=== PATIENT | male | born 1975 | race African-American/Black ===

== ENCOUNTER 2019-10-14 17:20 | Emergency (ER) | payer OTHER ==
[2019-10-14 17:29] VITALS: BMI 46.2
--- NOTE | 2019-10-14 17:46 | PDOC ---
History of Present Illness - General Chief Complaint: Pain Stated Complaint: ABD PAIN Time Seen by Provider: 10/14/19 17:37 History Source: Patient, Family Exam Limitations: No Limitations - History of Present Illness Initial Comments: 10/14/19 17:46 Source: Patient, , Discharge documentation PCP: Cheng, establishing care Wednesday) Aug 19, 2019 onward - admissions at [facility], then [place] Admitted to 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 One episode of vomiting today, NBNB. Diarrhea 3-4 times daily, watery / brown. Patient has been sticking with his fluid restriction despite this and reports his LE edema has decreased dramatically with continued diuretics. Reports no foul smell to the stool. Recent course of ABX and hospitalizations as above. Patient also endorses epigastric burning that begins after taking his medications every morning. Generally resolves after peptobismol, and resolved with Tums this morning. He believes it is a medication side effect. Denies any chest pain at the current time, no associated pains, diaphoresis, N/V with the pain occurrence. Denies any fevers / chills, SOB, dysuria, bloody or dark BMs. Past History - Travel Traveled outside of the country in the last 30 days: No Close contact w/someone who was outside of country & ill: No - Past Medical History Allergies/Adverse Reactions: Allergies Allergy/AdvReac Type Severity Reaction Status Date / Time furosemide [From Lasix] AdvReac Severe Verified 10/14/19 17:26 Home Medications: Ambulatory Orders Acetaminophen 650 mg PO Q6H PRN 10/14/19 Aspirin 81 mg PO DAILY 10/14/19 Ferrous Sulfate 325 mg PO DAILY 10/14/19 Furosemide 80 mg PO DAILY 10/14/19 Lactobacillus Acidophilus [Bacid -] 1 each PO BID 10/14/19 Lisinopril 2.5 mg PO DAILY 10/14/19 Melatonin 1 mg PO HS PRN 10/14/19 Metoprolol Succinate 25 mg PO DAILY 10/14/19 Oxycodone HCl 5 mg PO Q4H PRN 10/14/19 Spironolactone 25 mg PO DAILY 10/14/19 Warfarin Na [Coumadin] 5 mg PO HS 10/14/19 - Psycho Social/Smoking Cessation Hx Smoking History: Never smoked Hx Alcohol Use: No Drug/Substance Use Hx: No Review of Systems - Review of Systems Able to Perform ROS?: Yes Is the patient limited Yakut proficient: Yes Constitutional: No: Chills, Fever, Weakness, Unexplained wgt Loss HEENTM: No: Recent change in vision, Nose Congestion, Throat Pain Respiratory: No: Cough, Shortness of Breath, Wheezing, Hemoptysis Cardiac (ROS): Yes: See HPI, Edema (baseline, improving). No: Chest Pain, Irregular Heart Rate, Lightheadedness, Palpitations, Syncope, Chest Tightness ABD/GI: Yes: See HPI, Diarrhea (for 9 days, watery / brown), Nausea, Vomiting (1x today, NBNB), Indigestion. No: Constipated : No: Burning, Dysuria, Frequency Musculoskeletal: No: Muscle Pain, Muscle Weakness Integumentary: No: Bruising, Pruritus, Rash Neurological: No: Headache, Numbness, Tingling, Weakness Psychiatric: Yes: Stressors (surgeries). No: Change in Appetite Endocrine: No: Increased Thirst, Increased Urine Hematologic/Lymphatic: Yes: Anemia (iron deficiency). No: Blood Clots, Easy Bleeding All Other Systems: Reviewed and Negative *Physical Exam - Vital Signs Last Vital Signs Temp Pulse Resp BP Pulse Ox 97.6 F 130 H 18 111/79 96 10/14/19 17:26 10/14/19 17:26 10/14/19 17:26 10/14/19 17:26 10/14/19 17:26 - Physical Exam 10/14/19 18:44 Vitals reviewed, AF, Tachycardic to 130s. GEN: Well appearing, appears stated age, NAD, comfortable. AAOx3. HEENT: NCAT, EOMI, PERRL. Sclera anicteric, non-injected. No facial asymmetry. Moist mucous membranes. Normal voice. Trachea midline. CV: RRR, S1/S2, no murmurs / rubs / gallops appreciated. LUNG: CTAB, normal work of breathing. No wheezes, rales, rhonchi. No cough. Speaking full sentences. GI: Soft, NTND, +BS, no guarding, no rebound. No masses. Neg CVAT b/l. EXTREMITIES: 2+ distal pulses. + Bilateral LE edema. No obvious deformities of all extremities. SKIN: Warm, dry, no rashes appreciated, non-jaundiced. PSYCH: Normal mood and affect. Cooperative and appropriate. NEURO: CN grossly intact. Moving all extremities well. Normal strength and sensation grossly. 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 History notable for persistently elevated HR (130s) corroborated by documentation, recent hospitalizations, multiple medications additions and changes, antibiotic course. Exam notable for HR (baseline), non-tender abdomen, b/l LE edema, otherwise unremarkable. DDX Diarrhea: Colitis (C Dif?), Panc reatitis, Diverticulitis, Infectious Gastroenteritis, lactose intolerance, DDX pain: From etiologies above or GERD, r/o ACS. - CBC, CMP, Mg, Phos, Lactate, Lipase, Cardiac Profile, UA - EKG - 500cc IVF to start (tenuous volume status) - Maalox, Pepcid 10/14/19 19:10 - Patient endorsed to Dr. Manrique, overnight resident Discharge - Discharge Information Problems reviewed: Yes Clinical Impression/Diagnosis: Tachycardia Diarrhea Qualifiers: Diarrhea type: unspecified type Qualified Code(s): R19.7 - Diarrhea, unspecified Leukocytosis Qualifiers: Leukocytosis type: basophilia Qualified Code(s): D72.824 - Basophilia Abdominal pain Qualifiers: Abdominal location: epigastric Qualified Code(s): R10.13 - Epigastric pain Condition: Stable Disposition: AGAINST MEDICAL ADVICE - Follow up/Referral Referrals: Rosanna Zamudio DO [Primary Care Provider] - - Patient Discharge Instructions Additional Instructions: You were seen today for abdominal pain with diarrhea and one episode of vomiting. Your heart rate was fast (120s-130s). Your white blood cell count and basophil count were high. These are possible signs of a serious infection. Your INR was very high. You should not take your nightly Coumadin dose tonight. Call your doctors office tomorrow morning to ask how to adjust your dose. Be caseful. Any trauma could cause a life threatening bleed. You asked to leave the hospital against medical advice. We discussed the possib ility of a serious infection or other cause of your abnormal results. This could cause a more serious illness, permanent disability, or even . Please, please follow up with your primary care doctor on Wednesday. All of todays results are attached to this packet. Take it with you to the appointment so your doctor can review them. Go to the nearest emergency department for new or worsening symptoms. Print Language: FRENCH - Post Discharge Activity
[2019-10-14] MEDS ORDERED: MAG HYDROX/AL HYDROX/SIMETH 30 ML UNIT-DOSE CUP PO ONE (18:21)
[2019-10-14] MEDS ORDERED: FAMOTIDINE 20 MG/50 ML IVPB 20 MG/50 ML MG IVPB ONE ×2 (18:21→18:42)
[2019-10-14] MEDS ORDERED: SODIUM CHLORIDE 0.9% 500 ML INFUS.BAG IV ONE ×2 (18:23→18:42)
[2019-10-14] MEDS ORDERED: MAG HYDROX/AL HYDROX/SIMETH 30 ML UNIT-DOSE CUP ONE (18:42)
[2019-10-14 18:46] LABS: BASO % 1.1 % (0-2.0); EOS % 56.7 % (0-4.5); HEMOGLOBIN 13.9 GM/dL (11.7-16.9); MCH 28.2 pg (25.7-33.7); MCHC 32.4 g/dl (32.0-35.9); MEAN CELL VOLUME 86.9 fl (80-96); MEAN PLT VOLUME 6.7 fl (7.5-11.1); MONO % 4.2 % (3.8-10.2); PLATELET COUNT 494 K/MM3 (134-434); RBC 4.94 M/mm3 (4.00-5.60); WHITE BLOOD COUNT 17.3 K/mm3 (4.0-10.0)
[2019-10-14 19:08] LABS: ALBUMIN 2.9 g/dl (3.4-5.0); ALK PHOS 123 U/L (45-117); ANION GAP 9 MMOL/L (8-16); BILIRUBIN,TOTAL 0.5 mg/dL (0.2-1); BLOOD UREA NITROGEN 10.5 mg/dL (7-18); CALCIUM 9.4 mg/dL (8.5-10.1); CHLORIDE 100 mmol/L (98-107); CO2 26 mmol/L (21-32); CREATININE 0.6 mg/dL (0.55-1.3); GLUCOSE,RANDOM 113 mg/dL (74-106); LIPASE 125 U/L (73-393); MAGNESIUM 1.7 mg/dL (1.8-2.4); POTASSIUM 3.8 mmol/L (3.5-5.1); SGOT/AST 29 U/L (15-37); SGPT/ALT 30 U/L (13-61); SODIUM 136 mmol/L (136-145); TOT PROT 6.9 g/dl (6.4-8.2)
--- NOTE | 2019-10-14 19:18 | PDOC ---
*Physical Exam - Vital Signs Last Vital Signs Temp Pulse Resp BP Pulse Ox 97.6 F 134 H 18 109/82 100 10/14/19 17:26 10/14/19 18:30 10/14/19 18:30 10/14/19 18:30 10/14/19 18:30 ED Treatment Course - LABORATORY CBC & Chemistry Diagram: 10/14/19 18:20 10/14/19 18:20 - ADDITIONAL ORDERS Additional order review: Laboratory Results 10/14/19 18:20 Sodium 136 Potassium 3.8 Chloride 100 Carbon Dioxide 26 Anion Gap 9 BUN 10.5 Creatinine 0.6 Est GFR (CKD-EPI)AfAm 140.73 Est GFR (CKD-EPI)NonAf 121.43 Random Glucose 113 H Calcium 9.4 Phosphorus 4.0 Magnesium 1.7 L Total Bilirubin 0.5 AST 29 ALT 30 Alkaline Phosphatase 123 H Creatine Kinase 23 L Troponin I < 0.02 Total Protein 6.9 Albumin 2.9 L Lipase 125 10/14/19 18:20 RBC 4.94 MCV 86.9 MCHC 32.4 RDW 18.0 H MPV 6.7 L Neutrophils % 29.0 L Lymphocytes % 9.0 Monocytes % 4.2 Eosinophils % 56.7 H* Basophils % 1.1 - Medications Given in the ED: ED Medications Discontinued Medications Generic Name Dose Route Start Last Admin Trade Name Shaneq PRN Reason Stop Dose Admin Al Hydroxide/Mg Hydroxide 30 ml 10/14/19 18:21 10/14/19 18:48 Mylanta Oral Suspension - PO 10/14/19 18:22 30 ml ONCE ONE Administration Famotidine/Sodium Chloride 20 mg in 50 mls @ 100 mls/hr 10/14/19 18:21 10/14/19 18:48 Pepcid 20 Mg Premixed Ivpb - IVPB 10/14/19 18:50 100 mls/hr ONCE ONE Administration Sodium Chloride 1,000 ml 10/14/19 18:23 10/14/19 18:49 Normal Saline - IV 10/14/19 18:24 Not Given ONCE ONE Sodium Chloride 500 ml 10/14/19 18:42 10/14/19 18:48 Normal Saline - IV 10/14/19 18:43 500 ml ONCE ONE Administration Medical Decision Making - Medical Decision Making Received sign out from resident Dr. Vasquez. In short, pt is a 44 y/o male presenting with abdominal pain and one week of persistent diarrhea in setting of recent cardiac surgery. Will f/u pending lab values. Dispo pending. Spent >25 minutes discussing the abnormal lab values and tachycardia with the pt, the pts , and the pts mother (who identified herself as a registered nurse). Expressed concern for an infection or more serious illness, especially in the context of the recent cardiac surgeries. Also discussed supratherapeutic INR value, and possibility of life threatening hemorrhage. All three people appeared alert and oriented with intact insight. The pt stated he understood the possibility of a serious condition, but that he had been in the hospital for so long, and that he wanted to go home. Further stated he would follow up with his primary care doctor on Wednesday Morning. Told the pt to hold his evening Warfarin dose, and to call his doctors office in the morning to determine the revised dose. Returned again to the bedside to again review the abnormal values and concerns. MEÑO Alicia was present for this conversation. The pt and his family members again stated they understood the risks and that the pt was leaving against medical advice. Also stated they had no further questions. Provided copy of todays results. Discharge - Discharge Information Problems reviewed: Yes Clinical Impression/Diagnosis: Tachycardia Diarrhea Qualifiers: Diarrhea type: unspecified type Qualified Code(s): R19.7 - Diarrhea, unspecified Leukocytosis Qualifiers: Leukocytosis type: basophilia Qualified Code(s): D72.824 - Basophilia Abdominal pain Qualifiers: Abdominal location: epigastric Qualified Code(s): R10.13 - Epigastric pain Condition: Stable Disposition: AGAINST MEDICAL ADVICE - Admission No - Follow up/Referral Referrals: Rosanna Zamudio DO [Primary Care Provider] - - Patient Discharge Instructions Additional Instructions: You were seen today for abdominal pain with diarrhea and one episode of vomiting. Your heart rate was fast (120s-130s). Your white blood cell count and basophil count were high. These are possible signs of a serious infection. Your INR was very high. You should not take your nightly Coumadin dose tonight. Call your doctors office tomorrow morning to ask how to adjust your dose. Be caseful. Any trauma could cause a life threatening bleed. You asked to leave the hospital against medical advice. We discussed the possibility of a serious infection or other cause of your abnormal results. This could cause a more serious illness, permanent disability, or even . Please, please follow up with your primary care doctor on Wednesday. All of todays results are attached to this packet. Take it with you to the appointment so your doctor can review them. Go to the nearest emergency department for new or worsening symptoms. Print Language: CAY[place] ISLANDER - Post Discharge Activity
[2019-10-14 19:24] LABS: PROTHROMBIN TIME (PATIENT) 99.1 SEC (9.7-13.0)
[2019-10-14 19:25] LABS: INR 8.22 (0.83-1.09)
--- NOTE | 2019-10-14 19:39 | PDOC ---
Documentation entered by Jeremiah Johnson SCRIBE, acting as scribe for Isis Schwartz MD. Isis Schwartz MD: This documentation has been prepared by the Milagro berrios Nirvannie, SCRIBE, under my direction and personally reviewed by me in its entirety. I confirm that the documentation accurately reflects all work, treatment, procedures, and medical decision making performed by me. Attending Attestation - Resident Resident Name: Maxwell Vasquez - ED Attending Attestation I have performed the following: I have examined & evaluated the patient, The case was reviewed & discussed with the resident, I agree w/resident's findings & plan, Exceptions are as noted - HPI HPI: 10/14/19 18:56 [id number] with a significant past medical history of DM, squamous cell carcinoma to the right lateral thigh, aortic valve stenosis with vegetation / tumor s/p replacement with open heart surgery on 09/01/2019 (TV and MV replacement at the same time) On Coumadin - negative cultures but empirically treated with unasyn IV then Augmentin 875 bid for 2 weeks on discharge, DVT (on Warfarin), anemia with 9 days of watery brown/nonbloody diarrhea and 7 days of epigastric discomfort described as a burning sensation - which is intermittent, denies exacerbating or alleviating factors. Denies fever, chills, chest pain, SOB, palpitation, dizziness, weakness, bladder and bowel problems, leg swelling, No sick contacts or travel. No new changes in medications. Allergies: Furosemide. Lactose intolerance. Past Medical History: DM, squamous cell carcinoma to the right lateral thigh, aortic valve stenosis with vegetation / tumor s/p replacement with open heart surgery on 09/01/2019 (TV and MV repairs at the same time) - negative cultures but empirically treated with unasyn IV then Augmentin 875 bid for 2 weeks on d ischarge, DVT (on Warfarin), anemia Social history: Lives with family. No tobacco, ETOH or drug use. Surgical history: As per nursing notes. Meds: as documented in EMR PMD: Dr. Hall 10/14/19 20:08 - Physicial Exam PE: 10/14/19 18:08 NAD, well appearing, EOMI, PERRL, MMM, nl conjunctiva, anicteric; neck supple. anteiror sternotomy scar, well healing. mild tender to palp. lungs clear, no murmur, +tachycardic, abdomen soft nontender. Obese. Back nontender. WHITEHEAD x4, no focal neuro deficits. No peripheral edema. normal color for ethnicity, WWP. 10/14/19 19:38 10/14/19 20:09 - Medical Decision Making 10/14/19 19:38 Vital Signs Temp Pulse Resp BP Pulse Ox 97.6 F 134 H 18 109/82 100 10/14/19 17:26 10/14/19 18:30 10/14/19 18:30 10/14/19 18:30 10/14/19 18:30 DDx abdominal pain: Renal colic, biliary colic, metabolic/electrolyte derangements. GERD, PUD, esophageal spasm, pancreatitis, hepatitis, constipation, colitis, gastroenteritis, cholecystitis, UTI, pyelonephritis, ileus, SBO, medication side effect, hernia, appendicitis, diverticulitis, mesenteric ischemia. msk strain, mesenteric adenitis, psoas abscess. c diff colitis. 10/14/19 20:20 Vital signs reviewed, no fever, checked rectally. Tachycardia is noted in the 130s. Normotensive, no respiratory distress. Prior records from [place] were reviewed extensively, patient recently had presumed endocarditis with negative cultures, he had mitral and aortic valve replacement. He was on a course of Unasyn and DC'd on Augmentin which he has yet to complete. Given his recent antibiotic use there is concern for C. difficile colitis given his abdominal discomfort as well as large episodes of diarrhea for over a week., Guaiac is sent, negative for occult blood Laboratory results remarkable for leukocytosis 17 K. Patient is also supratherapeutic on his Coumadin, INR is 8. No reversal at this time as patient is status post aortic and mitral valve replacement so there is a risk for thrombosis. Trop neg, reassuring given IVF GI cocktail. reassess. bedside echo CT chest CT abdomen pelvis to evaluate for intra-abdominal process versus toxic megacolon versus abscess versus acute pathology given his recent procedures and hospitalization 10/14/19 20:25 pt declines imaging, c diff testing, admission. The patient has requested to leave the ED against medical advice. Discussion at the bedside with patient (and family). Pt has capacity to make medical decisions. Discussed indications for treatment and admission, management plan, risks and benefits. I believe this patient is of sound mind and competent to refuse medical care. The patient is responding and asking questions appropriately. The patient is oriented to person, place and time. There is no evidence of psychosis, delusions/hallucinations, suicidal/homicidal ideation, altered mental status or intoxication. The patient demonstrates a normal mental capacity to make decisions regarding their healthcare. The patient is clinically sober and does not appear to be under the influence of any illicit drugs at this time. Patient understands the nature of the condition and treatment plan, advised of the potential risks, in layman terms, of leaving AMA which include, but are not limited to: cardiopulmonary arrest, severe infection, blood stream infection, dehydration, severe bleeding, multiorgan failure including liver, kidney, brain, lung and heart, myocardial infarction, arrhythmia, stroke, head bleed, seizure, carotid stenosis/aneurysm/dissection, respiratory failure, delay in diagnosis and management, loss of current lifestyle, loss of functional status, coma, severe disability and . Alternatives have been offered - the patient remains steadfast in their wish to leave. The patient has been advised that should they change their mind they are welcome to return to this hospital, or any other, at any time - call 911 immediately if severe life threatening symptoms or concerns occur. The patient understands that in no way does an AMA discharge mean that I do not want them to have the best medical care available. To this end, I have provided appropriate prescriptions, referrals, and discharge instructions. Patient will have close followup with primary doctor and/or specialists as provided/discussed for clinical reevaluation. Patient verbalized understanding of information provided, questions answered. The patient did sign AMA paperwork. The above discussion was witnessed by another member of staff, RN and Dr Manrique ------- 10/16/19 20:14 Heart Score/ECG Review #1 ECG reviewed & interpreted by me at: 17:40 General ECG Interpretation: Sinus Rhythm, Normal Intervals Compared to previous ECG there are: Previous ECG unavail 10/14/19 19:39 EKG sinus tachycardia 125 bpm, intermittent PVC no interval abnormalities, narrow QRS, ST and T wave segments and morphology normal. Nonspecific T wave abnormalities
[2019-10-14 20:02] LABS: EPI CELLS 4.5 /HPF (0-5/HPF); HYALINE CASTS 10 /lpf (0-8); URINE APPEARANCE CLOUDY; URINE BILIRUBIN 1+ (NEGATIVE); URINE COLOR DK YELLOW; URINE GLUCOSE (UA) NEGATIVE (NEGATIVE); URINE KETONE TRACE (NEGATIVE); URINE LEUK ESTERASE NEGATIVE (NEGATIVE); URINE NITRITE NEGATIVE (NEGATIVE); URINE PROTEIN 1+ (NEGATIVE); URINE RBC 3 /hpf (0-4); URINE WBC 1 /hpf (0-5)
[2019-10-14 20:07] VITALS: TEMP 99.1
[2019-10-14 20:56] VITALS: BP 112/75; PULSE 128
[2019-10-14 21:15] LABS: URINE CRYSTALS MODERATE /hpf
--- NOTE | 2019-10-16 09:36 | EKG ---
Test Reason : Blood Pressure : / mmHG Vent. Rate : 125 BPM Atrial Rate : 125 BPM P-R Int : 164 ms QRS Dur : 088 ms QT Int : 330 ms P-R-T Axes : -12 -08 056 degrees QTc Int : 476 ms SINUS TACHYCARDIA WITH OCCASIONAL PREMATURE VENTRICULAR COMPLEXES INFERIOR INFARCT , AGE UNDETERMINED ABNORMAL ECG NO PREVIOUS ECGS AVAILABLE Confirmed by Amanda Pappas ([id number]) on 10/16/2019 9:36:22 AM Referred By: Confirmed By:Amanda Pappas
== END 2019-10-14 20:58 | disposition left against medical advice (07) ==
LOC: JER 17:20
PROC: 3E033GC Introduction of Other Therapeutic Substance into Peripheral Vein, Percutaneous Approach (ICD-10-PCS; principal; 2019-10-14)
DX: R00.0 Tachycardia, unspecified (principal); D72.824 Basophilia; R10.13 Epigastric pain; D68.8 Other specified coagulation defects; E73.9 Lactose intolerance, unspecified; D50.9 Iron deficiency anemia, unspecified; E11.9 Type 2 diabetes mellitus without complications; Z85.828 Personal history of other malignant neoplasm of skin; Z95.4 Presence of other heart-valve replacement; Z86.79 Personal history of other diseases of the circulatory system; Z86.718 Personal history of other venous thrombosis and embolism; Z79.01 Long term (current) use of anticoagulants; Z88.8 Allergy status to other drugs, medicaments and biological substances
CPT/HCPCS: 36415; 71045-TC-FY; 80053; 81003; 82272; 82550; 83605; 83690; 83735; 84100; 84484; 85025; 85610; 93005; 93010; 99285-25

== ENCOUNTER 2020-02-10 17:37 | Inpatient (IN) | payer OTHER ==
[2020-02-10] MEDS ORDERED: TRANEXAMIC ACID 1000 MG/10 ML VIAL IVPUSH ONE (17:57)
--- NOTE | 2020-02-10 18:00 | PDOC ---
History of Present Illness - General Chief Complaint: Wound Stated Complaint: ULCER BLEEDING Time Seen by Provider: 02/10/20 17:46 History Source: Patient, Family - History of Present Illness Initial Comments: 02/10/20 18:38 44M w/hx active SCC, afib, CHF, HTN BIBEMS bleed from wound site, wrapped with c ompression dressing en route. He has active SCC with ulcerations along the R upper thigh through to the inner thigh and groin. His reports that during prior bleeds from these ulcerations she has applied direct pressure until the bleeding stopped. Today, he sat down onto the toilet when he scraped the ulceration on the inner thigh and began to bleed. He became lightheaded and had a brief period of LOC before waking up to his normal mental status. He denies any chest pain, sob. He endorses generalized weakness, fatigue. Past History - Medical History Allergies/Adverse Reactions: Allergies Allergy/AdvReac Type Severity Reaction Status Date / Time furosemide [From Lasix] AdvReac Severe Verified 02/10/20 17:56 Home Medications: Ambulatory Orders Acetaminophen 650 mg PO Q6H PRN 10/14/19 Aspirin 81 mg PO DAILY 10/14/19 Ferrous Sulfate 325 mg PO DAILY 10/14/19 Metoprolol Succinate [Toprol XL -] 200 mg PO DAILY #30 tab.sr.24h 10/30/19 Spironolactone 25 mg PO DAILY #30 tablet 10/30/19 Amiodarone HCl 400 mg PO BID 02/10/20 Anemia: Yes Cancer: Yes (Squamous cell right leg) Cardiac Disorders: Yes (Aortic valve stenosis, hypertensive heart dx w/ heart failure) COPD: No DVT: Yes Diabetes: Yes (Type I) HTN: Yes Other medical history: Obesity - Surgical History Cardiac Surgery: Yes - Psycho-Social/Smoking History Smoking History: Never smoked Have you smoked in the past 12 months: No Information on smoking cessation initiated: No - Substance Abuse Hx (Audit-C & DAST Scrn) How often the patient has a drink containing alcohol: Never Score: In Men: 4 or > Positive; In Women: 3 or > Positive: 0 Screen Result (Pos requires Nsg. Audit-10AR): Negative Review of Systems - Review of Systems Able to Perform ROS?: Yes Comments:: 02/11/20 10:37 GENERAL/CONSTITUTIONAL: Weakness. No fever or chills. HEAD, EYES, EARS, NOSE AND THROAT: No change in vision. No ear pain or discharge. No sore throat. CARDIOVASCULAR: No chest pain or shortness of breath RESPIRATORY: No cough, wheezing, or hemoptysis. GASTROINTESTINAL: No nausea, vomiting, diarrhea or constipation. GENITOURINARY: No dysuria, frequency, or change in urination. MUSCULOSKELETAL: RLE pain. No other joint or muscle swelling or pain. No neck or back pain. SKIN: SCC ulcerations. No other rash NEUROLOGIC: No headache, vertigo, loss of consciousness, or change in strength/sensation. ENDOCRINE: No increased thirst. No abnormal weight change HEMATOLOGIC/LYMPHATIC: Prior transfusion dependent anemia, easy bleeding. No history of blood clots. ALLERGIC/IMMUNOLOGIC: No hives or skin allergy. *Physical Exam - Vital Signs Last Vital Signs Temp Pulse Resp BP Pulse Ox 98.9 F 98 H 20 97/70 97 02/10/20 17:53 02/10/20 17:53 02/10/20 17:53 02/10/20 17:53 02/10/20 17:53 - Physical Exam 02/11/20 10:39 GENERAL: Pale. Awake, alert, and fully oriented HEAD: No signs of trauma, normocephalic, atraumatic EYES: PERRLA, EOMI, sclera anicteric, conjunctiva clear ENT: Auricles normal inspection, hearing grossly normal, nares patent, oropharynx clear without exudates. Moist mucosa NECK: Normal ROM, supple, no lymphadenopathy, JVD, or masses LUNGS: No distress, speaks full sentences, clear to auscultation bilaterally HEART: Regular rate and rhythm, normal S1 and S2, no murmurs, rubs or gallops, peripheral pulses normal and equal bilaterally. ABDOMEN: Soft, nontender, normoactive bowel sounds. No guarding, no rebound. No masses EXTREMITIES : RLE: ulcerations noted throughout anterior extremity, distributed medially to R inner thigh. No active bleeding. Otherwise: Normal inspection, Nor mal range of motion, no edema. No clubbing or cyanosis NEUROLOGICAL: Cranial nerves II through XII grossly intact. Normal speech, no focal sensorimotor deficits SKIN: Lesions on RLE as described above. ED Treatment Course - LABORATORY CBC & Chemistry Diagram: 02/11/20 06:02/11/20 06:20 Medical Decision Making - Medical Decision Making 44M w/hx SCC, afib, CHF, HTN p/w acute onset bleeding from SCC lesions after scraping lesion against toiler, approx blood loss 500cc per EMS. Compression dressing applied, no active bleeding at this time. Pallor on exam, brief LOC c oncerning for blood loss anemia vs vasovagal syncope. Plan: Topical TXA dressing of wounds, reapply compression bandages CBC PT/INR, APTT Type and screen Troponin I CMP EKG CXR 2L LR Dispo: Pending H&H --- Hg 7.6 Plan for 2u transfusion PRBCs, admission Consent for transfusion completed and signed. --- Patient endorsing significant pain from wound site. 50mg fentanyl ordered. --- Patient endorsed to inpatient team. Patient admitted. Discharge - Discharge Information Problems reviewed: Yes Clinical Impression/Diagnosis: Squamous cell carcinoma, leg, Blood loss anemia Condition: Guarded - Admission Yes - Follow up/Referral - Patient Discharge Instructions - Post Discharge Activity
[2020-02-10 18:16] LABS: BASO % 0.5 % (0-2.0); EOS % 40.8 % (0-4.5); HEMATOCRIT 24.2 % (35.4-49); HEMOGLOBIN 7.6 GM/dL (11.7-16.9); LYMPH % 5.5 % (8-40); MCH 27.3 pg (25.7-33.7); MCHC 31.3 g/dl (32.0-35.9); MEAN PLT VOLUME 6.7 fl (7.5-11.1); MONO % 5.1 % (3.8-10.2); NEUT % 48.1 % (42.8-82.8); PLATELET COUNT 513 K/MM3 (134-434); RBC 2.79 M/mm3 (4.00-5.60); RDW 15.7 % (11.9-15.9); WHITE BLOOD COUNT 19.2 K/mm3 (4.0-10.0)
[2020-02-10] MEDS ORDERED: TRANEXAMIC ACID 1000 MG/10 ML VIAL ONE (18:17)
[2020-02-10 18:22] LABS: INR 1.21 (0.83-1.09); PROTHROMBIN TIME (PATIENT) 14.3 SEC (9.7-13.0)
--- NOTE | 2020-02-10 18:22 | PDOC ---
Attending Attestation - Resident Resident Name: Lamberto Weathers - ED Attending Attestation I have performed the following: I have examined & evaluated the patient, The case was reviewed & discussed with the resident, I agree w/resident's findings & plan - HPI HPI: 02/10/20 18:20 44YOM with a significant past medical history of DM, squamous cell carcinoma to the right lateral thigh, aortic valve stenosis with vegetation / tumor s/p replacement with open heart surgery on 09/01/2019 (TV and MV replacement at the same time) On Coumadin, DVT (on Warfarin), anemia presenting with right thigh bleeding from SCC ulcerations after getting up from the bathroom toilet a/w syncope after seeing the bleeding. noted to have significant bleeding en route with EMS, compression dressings placed around his thigh. estimated blood loss ~450ml. 02/10/20 18:29 - Physicial Exam PE: 02/10/20 18:20 Agree with the resident's HPI and PE as documented in the electronic medical record. NAD, alert and awake, mentating, EOMI, PERRL, nl conjunctiva, anicteric; neck supple. lungs clear, RRR, abdomen soft nontender. No rebound, no guarding. Back nontender. WHITEHEAD x4, no focal neuro deficits. No peripheral edema. normal color for ethnicity, WWP. speech clear. +right thigh with extensive area of SCC mass related SQ ulcerations with irregular granulated tissue and borders; large medial ulceration with blood clot, no active bleeding. 02/10/20 18:29 02/12/20 08:06 - Critical Care Time Total Critical Care Time: 40 (hemorrhage) Critical Care Statement: The care of this patient involved high complexity decision making to prevent further life threatening deterioration of the patient's condition and/or to evaluate & treat vital organ system(s) failure or risk of failure. - Medical Decision Making 02/10/20 18:21 Vital Signs Temp Pulse Resp BP Pulse Ox 98.9 F 98 H 20 97/70 97 02/10/20 17:53 02/10/20 17:53 02/10/20 17:53 02/10/20 17:53 02/10/20 17:53 Vitals reviewed_ soft BP, could have had a vasovagal episode vs hemorrhage, which is being controlled no fever normal sats, no respiratory distress. Topical txa, to control bleeding Appears to be superficial/venous, not arterial Compression dressings with gauze soaked TXA topically 15-30 minutes, reassess Basic labs and lytes, txs to evaluate for anemia/bleeding complications. acutely anemic and symptomatic, H/H 7.6/24.2 with blood loss will transfuse 2 units prbc volume resuscitate in the meantime with 1L IVF given his soft BP admission warranted, for SCC ulcerative bleeding, acute anemia, syncope, now hemostatic. 02/10/20 18:30 02/10/20 18:30 02/10/20 19:00 Discharge - Discharge Information Problems reviewed: Yes Clinical Impression/Diagnosis: Squamous cell carcinoma, leg, Blood loss anemia Condition: Guarded - Admission Yes - Follow up/Referral - Patient Discharge Instructions - Post Discharge Activity
[2020-02-10 18:25] LABS: ACTIVATED PTT 26.1 SECONDS (25.2-36.5)
[2020-02-10 18:51] LABS: ALBUMIN 1.6 g/dl (3.4-5.0); ALK PHOS 86 U/L (45-117); ANION GAP 8 MMOL/L (8-16); BILIRUBIN,TOTAL 0.2 mg/dL (0.2-1); BLOOD UREA NITROGEN 14.9 mg/dL (7-18); CALCIUM 8.1 mg/dL (8.5-10.1); CHLORIDE 105 mmol/L (98-107); CO2 25 mmol/L (21-32); CREATININE 1.1 mg/dL (0.55-1.3); GLUCOSE,RANDOM 179 mg/dL (74-106); SGOT/AST 15 U/L (15-37); SGPT/ALT 14 U/L (13-61); SODIUM 139 mmol/L (136-145); TOT PROT 5.5 g/dl (6.4-8.2)
[2020-02-10] MEDS ORDERED: LACTATED RINGERS SOLUTION 1000 ML INFUS.BAG IV ONE (19:03)
--- NOTE | 2020-02-10 19:25 | PN ---
Teaching Attending Note Name of Resident: Don Rey ATTENDING PHYSICIAN STATEMENT I saw and evaluated the patient. I reviewed the resident's note and discussed the case with the resident. I agree with the resident's findings and plan as documented. SUBJECTIVE: Patient is a 44 year old man with a PMH of Diet-controlled DM, HFrEF (LVEF 40% - ECHO 10/24/2019), Squamous cell carcinoma of right lateral thigh, Aortic valve stenosis, Valvular replacement with open heart surgery on 09/01/2019 (TV and MV replacement at the same time - ?bovine), Aflutter, DVT (stopped coumadin 1 month ago), HTN and Anemia presenting with right thigh bleeding from SCC ulcerations after accidentally scrapping the thigh ulcerations on the toilet seat. Reports a bout of syncope upon seeing the bleeding. EMS noted significant bleeding en route with estimated loss of about 450 ml. EMS applied compression dressings placed around his thigh. Reports generalized weakness and fatigue. Patient denies chest pain, SOB, fever, chills, nausea, vomiting, abdominal pain, dysuria or diarrhea. Denies alcohol, tobacco or illicit drug use. No sick contacts or recent travels. Family history is unremarkable. OBJECTIVE: Alert Vital Signs Period Temp Pulse Resp BP Sys/Carrion Pulse Ox Last 24 Hr 98.9 F 98 20 97/70 97 HEENT: No Jaundice, eye redness or discharge, PERRLA, EOMI. Normocephalic, atraumatic. External ears are normal and hearing is grossly intact. No nasal discharge. Neck: Supple, nontender. No palpable adenopathy or thyromegaly. No JVD Chest: Good effort. Clear to auscultation and percussion. Heart: Regular. 2/6 GIDEON. No S3 or rub. Abdomen: Not distended, soft, nontender and no HSM. No rebound or guarding. Normal bowel sounds. Ext: Peripheral pulses intact. No leg edema. Ulceration in right groin and back of right thigh with active bleeding. RLE bigger than LLE. Skin: Warm and dry. No petechiae, rash or ecchymosis. Neuro: Alert. Oriented x3. CN 2-12 grossly intact. Sensation grossly intact in all four extremities and DTR are symmetric. Psych: Appropriate mood and affect. Good insight. Home Medications Medication Instructions Recorded Acetaminophen 650 mg PO Q6H PRN 10/14/19 Aspirin 81 mg PO DAILY 10/14/19 Ferrous Sulfate 325 mg PO DAILY 10/14/19 Metoprolol Succinate [Toprol XL -] 200 mg PO DAILY #30 tab.sr.24h 10/30/19 Spironolactone 25 mg PO DAILY #30 tablet 10/30/19 Amiodarone HCl 400 mg PO BID 02/10/20 Abnormal Lab Results 02/10/20 02/10/20 02/10/20 18:00 18:00 18:00 WBC 19.2 H RBC 2.79 L Hgb 7.6 L Hct 24.2 L D MCHC 31.3 L Plt Count 513 H D MPV 6.7 L Absolute Neuts (auto) 9.2 H Lymphocytes % 5.5 L D Eosinophils % 40.8 H* PT with INR 14.30 H INR 1.21 H Random Glucose 179 H Calcium 8.1 L Total Protein 5.5 L Albumin 1.6 L Crossmatch 02/10/20 18:00 WBC RBC Hgb Hct MCHC Plt Count MPV Absolute Neuts (auto) Lymphocytes % Eosinophils % PT with INR INR Random Glucose Calcium Total Protein Albumin Crossmatch See Detail Current Medications Generic Name Dose Route Start Last Admin Trade Name Freq PRN Reason Stop Dose Admin Tramadol HCl 50 mg 02/10/20 21:24 Ultram - PO Q8H PRN PAIN LEVEL 7 - 10 ASSESSMENT AND PLAN: 1. Squamous cell carcinoma of right thigh/Blood loss anemia - Being transfused PRBC and compression stockings applied. Got a dose of IV Tranexamic acid in the ER. Will encourage leg elevation when supine. Consult Oncology. Leukocytosis is unexplained - will do sepsis workup to rule out infection and repeat CBC stat. 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 Would benefit from IV iron therapy before discharge. Viral testing for COVID-19 ordered and patient placed on airborne, droplet and contact isolation. EKG shows NSR at 90/minute and QTc 479 with T wave inversion in V1-V3 and no significant ST wave changes - no significant change compared to his prior EKG. Initial troponin is negative. Will admit to telemetry and monitor HCT q 6 hours. Avoid drugs that may prolong QTc. Will continue comprehensive care for all of patients comorbid conditions. 2. Hypoalbuminemia - Possibly due to combined effects of malnutrition and inflammation associated with comorbid conditions. Will ensure adequate dietary protein intake and also consult arboriculturist. Urinalysis pending. 3. Diet-controlled DM For now, we will implement sliding scale insulin regimen. Provide comprehensive diabetes care with patient teaching and counseling about the importance of adherence to prescribed diabetes regimen, euglycemia, eye care and foot care. 4. Morbid obesity Counseled on the risks associated with obesity. Will provide patient all the necessary assistance, counseling and positive reinforcement to f acilitate weight loss. Consult arboriculturist. 5. Hypertension Will restart suitable outpatient antihypertensive drugs when clinically appropriate. Subsequently, will revise regimen to ensure round-the- clock excellent BP control. Patient counseled on the injurious effects of uncontrolled hypertension. Nonpharmacologic measures to control hypertension like weight loss, salt restriction and exercise stressed. Importance of adherence to treatment regimen and attainment of normotension emphasized. 6. DVT prophylaxis - Early ambulation; will avoid heparin until bleeding stops. 7. Advance directives - Full code
--- NOTE | 2020-02-10 21:41 | HP ---
CHIEF COMPLAINT: Syncope PCP: Dr. Phillips HISTORY OF PRESENT ILLNESS: Mr. Bae is a 44M with a PMHx of SCC of the right upper thigh with an active wound, aortic valve stenosis s/p povine valve replacement of both MV and TV on 09/01/19. Patient was advised by the sugar controller to stop coumadin for the valve replacement last month. DVT, and anemia. The patient is BIBEMS and reported having woken up from a nap and his leg feeling extremely swollen as if about to pop. The patient walked to the restroom to use the toilet and once seated the SCC ulcer had ruptured and active bleeding of about 450cc had ensued. The patient had been witnessed by the to be diaphoretic and pale. The patients assisted in compressions and preventing the patient from striking his head as he lost muscle tone. The patient's reported the episode to have lasted 1 min. The patient endorses diaphoresis. The patient denies chest pain, shoulder pain, numbness or tingling in the arms or hands. The patient also denies shortness of breath or dyspnea. ER course was notable for: (1) hypotension (2) (3) Recent Travel: PAST MEDICAL HISTORY: PAST SURGICAL HISTORY: Social History: Smoking: Alcohol: Drugs: Allergies furosemide [From Lasix] Adverse Reaction (Severe, Verified 02/10/20 17:56) watch BP? HOME MEDICATIONS: Home Medications Medication Instructions Recorded Acetaminophen 650 mg PO Q6H PRN 10/14/19 Aspirin 81 mg PO DAILY 10/14/19 Ferrous Sulfate 325 mg PO DAILY 10/14/19 Metoprolol Succinate [Toprol XL -] 200 mg PO DAILY #30 tab.sr.24h 10/30/19 Spironolactone 25 mg PO DAILY #30 tablet 10/30/19 Amiodarone HCl 400 mg PO BID 02/10/20 REVIEW OF SYSTEMS CONSTITUTIONAL: Absent: fever, chills, diaphoresis, generalized weakness, malaise, loss of appetite, weight change HEENT: Absent: rhinorrhea, nasal congestion, throat pain, throat swelling, difficulty swallowing, mouth swelling, ear pain, eye pain, visual changes CARDIOVASCULAR: Absent: chest pain, syncope, palpitations, irregular heart rate, lightheadedness, peripheral edema RESPIRATORY: Absent: cough, shortness of breath, dyspnea with exertion, orthopnea, wheezing, stridor, hemoptysis GASTROINTESTINAL: Absent: abdominal pain, abdominal distension, nausea, vomiting, diarrhea, constipation, melena, hematochezia GENITOURINARY: Absent: dysuria, frequency, urgency, hesitancy, hematuria, flank pain, genital pain MUSCULOSKELETAL: Absent: myalgia, arthralgia, joint swelling, back pain, neck pain SKIN: Absent: rash, itching, pallor HEMATOLOGIC/IMMUNOLOGIC: Absent: easy bleeding, easy bruising, lymphadenopathy, frequent infections ENDOCRINE: Absent: unexplained weight gain, unexplained weight loss, heat intolerance, cold intolerance NEUROLOGIC: Absent: headache, focal weakness or paresthesias, dizziness, unsteady gait, seizure, mental status changes, bladder or bowel incontinence PSYCHIATRIC: Absent: anxiety, depression, suicidal or homicidal ideation, hallucinations. PHYSICAL EXAMINATION Vital Signs - 24 hr 02/10/20 02/10/20 17:53 20:00 Temperature 98.9 F 98.3 F Pulse Rate 98 H Pulse Rate [ 87 Left Radial] Respiratory 20 22 H Rate Blood Pressure 97/70 Blood Pressure 110/65 [Right Arm] O2 Sat by Pulse 97 97 Oximetry (%) GENERAL: Awake, alert, and fully oriented, in no acute distress. HEAD: Normal with no signs of trauma. EYES: Pupils equal, round and reactive to light, extraocular movements intact, sclera anicteric, conjunctiva clear. No lid lag. EARS, NOSE, THROAT: Ears normal, nares patent, oropharynx clear without exudates. Moist mucous membranes. NECK: Normal range of motion, supple without lymphadenopathy, JVD, or masses. LUNGS: Breath sounds equal, clear to auscultation bilaterally. No wheezes, and no crackles. No accessory muscle use. HEART: Regular rate and rhythm, normal S1 and S2 without murmur, rub or gallop. ABDOMEN: Soft, nontender, not distended, normoactive bowel sounds, no guarding, no rebound, no masses. No hepatomegaly or splenomegaly. MUSCULOSKELETAL: Normal range of motion at all joints. No bony deformities or tenderness. No CVA tenderness. UPPER EXTREMITIES: 2+ pulses, warm, well-perfused. No cyanosis. No clubbing. No peripheral edema. LOWER EXTREMITIES: 2+ pulses, warm, well-perfused. No calf tenderness. No peripheral edema. NEUROLOGICAL: Cranial nerves II-XII intact. Normal speech. Normal gait. PSYCHIATRIC: Cooperative. Good eye contact. Appropriate mood and affect. SKIN: Warm, dry, normal turgor, no rashes or lesions noted, normal capillary refill. Laboratory Results - last 24 hr 02/10/20 02/10/20 02/10/20 18:00 18:00 18:00 WBC 19.2 H RBC 2.79 L Hgb 7.6 L Hct 24.2 L D MCV 87.0 MCH 27.3 MCHC 31.3 L RDW 15.7 D Plt Count 513 H D MPV 6.7 L Absolute Neuts (auto) 9.2 H Neutrophils % 48.1 Neutrophils % (Manual) 49.0 D Band Neutrophils % 0.0 Lymphocytes % 5.5 L D Lymphocytes % (Manual) 11.8 D Monocytes % 5.1 Monocytes % (Manual) 5 Eosinophils % 40.8 H* Eosinophils % (Manual) 33.3 H Basophils % 0.5 Basophils % (Manual) 1.0 D Myelocytes % (Man) 0 Promyelocytes % (Man) 0 Blast Cells % (Manual) 0 Nucleated RBC % 0 Metamyelocytes 0 PT with INR 14.30 H INR 1.21 H PTT (Actin FS) 26.1 Sodium 139 Potassium 4.0 Chloride 105 Carbon Dioxide 25 Anion Gap 8 BUN 14.9 Creatinine 1.1 Est GFR (CKD-EPI)AfAm 93.47 Est GFR (CKD-EPI)NonAf 80.64 Random Glucose 179 H Calcium 8.1 L Total Bilirubin 0.2 AST 15 ALT 14 Alkaline Phosphatase 86 Troponin I < 0.02 Total Protein 5.5 L Albumin 1.6 L Blood Type Antibody Screen Crossmatch 02/10/20 02/10/20 18:00 20:20 WBC RBC Hgb Hct MCV MCH MCHC RDW Plt Count MPV Absolute Neuts (auto) Neutrophils % Neutrophils % (Manual) Band Neutrophils % Lymphocytes % Lymphocytes % (Manual) Monocytes % Monocytes % (Manual) Eosinophils % Eosinophils % (Manual) Basophils % Basophils % (Manual) Myelocytes % (Man) Promyelocytes % (Man) Blast Cells % (Manual) Nucleated RBC % Metamyelocytes PT with INR INR PTT (Actin FS) Sodium Potassium Chloride Carbon Dioxide Anion Gap BUN Creatinine Est GFR (CKD-EPI)AfAm Est GFR (CKD-EPI)NonAf Random Glucose Calcium Total Bilirubin AST ALT Alkaline Phosphatase Troponin I Total Protein Albumin Blood Type B NEGATIVE B NEGATIVE Antibody Screen Negative Negative Crossmatch See Detail ASSESSMENT/PLAN: 44 year old male with PMH of Obesity, DM 2, HFrEF (LVEF 40% - ECHO 10/24/2019), 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 1. Acute Blood Loss Anemia secondary to hemorrhage from R thigh ulcer (SCC) H.H 7.6/24.2 (Baseline 10.3/31.5 on 10/29) Ulcer now compressed and dressed. No further blood loss. Receiving 2 units PRBCs. Hemodynamically Stable. Will order CT RLE Surgery eval requested. Appears to have history of RONNIE as he is chronically on Ferrous Sulfate. 2. SCC RLE - recurrent. Has had 3 prior surgeries fro SCC on other areas on leg. Rx for this lesion delayed due to COVID Pandemic. Oncology consulted. 3. HTN - BP meds Metoprolol and Spironolactone to resume in AM if BP allows. 4. Hx Atrial Flutter - on Amiodarone. Not on AC 5. Hx of DVT - recently stopped Coumadin 1 month prior. DVT Px - SCDs Visit type - Emergency Visit Emergency Visit: Yes ED Registration Date: 02/10/20 Care time: The patient presented to the Emergency Department on the above date and was hospitalized for further evaluation of their emergent condition. - New Patient This patient is new to me today: No - Critical Care Critical Care patient: No ATTENDING PHYSICIAN STATEMENT I saw and evaluated the patient. I reviewed the resident's note and discussed the case with the resident. I agree with the resident's findings and plan as documented. SUBJECTIVE: OBJECTIVE: ASSESSMENT AND PLAN:
[2020-02-10] MEDS ORDERED: traMADol HCL 50 MG TABLET ONE (21:45)
[2020-02-10] MEDS: traMADol HCL 50 MG TABLET PO PRN (21:55)
[2020-02-10] MEDS ORDERED: ACETAMINOPHEN 1000 MG/100 ML VIAL (NON FORMULARY) IVPB PRN (23:22)
[2020-02-10] MEDS ORDERED: ACETAMINOPHEN INJECTION 100 ML IVPB ONE (23:30)
[2020-02-10] MEDS: ACETAMINOPHEN 1000 MG/100 ML VIAL (NON FORMULARY) IVPB PRN (23:53)
[2020-02-11] MEDS ORDERED: traMADol HCL 50 MG TABLET ONE ×2 (01:31→10:20)
[2020-02-11] MEDS ORDERED: MELATONIN 5 MG TABLETS PO ONE (01:42)
[2020-02-11] MEDS ORDERED: ACETAMINOPHEN INJECTION 100 ML IVPB ONE ×2 (05:26→12:43)
[2020-02-11] MEDS: ACETAMINOPHEN 1000 MG/100 ML VIAL (NON FORMULARY) IVPB PRN ×3 (05:39→18:41)
[2020-02-11 07:53] LABS: EOS % 43.4 % (0-4.5); HEMATOCRIT 23.7 % (35.4-49); HEMOGLOBIN 7.6 GM/dL (11.7-16.9); MCH 27.6 pg (25.7-33.7); MCHC 31.9 g/dl (32.0-35.9); MEAN CELL VOLUME 86.7 fl (80-96); MEAN PLT VOLUME 6.7 fl (7.5-11.1); MONO % 5.8 % (3.8-10.2); NEUT % 44.8 % (42.8-82.8); PLATELET COUNT 413 K/MM3 (134-434); RBC 2.74 M/mm3 (4.00-5.60); RDW 15.3 % (11.9-15.9); WHITE BLOOD COUNT 18.9 K/mm3 (4.0-10.0)
[2020-02-11 08:03] LABS: BLOOD UREA NITROGEN 14.8 mg/dL (7-18); CALCIUM 8.8 mg/dL (8.5-10.1); CREATININE 0.8 mg/dL (0.55-1.3); POTASSIUM 4.6 mmol/L (3.5-5.1)
[2020-02-11] MEDS: traMADol HCL 50 MG TABLET PO PRN ×2 (10:24→17:27)
[2020-02-11 10:42] LABS: ANISOCYTOSIS 1+; MACROCYTOSIS 0; PLATELET ESTIMATE NORMAL
--- NOTE | 2020-02-11 14:04 | EKG ---
Test Reason : Blood Pressure : / mmHG Vent. Rate : 090 BPM Atrial Rate : 090 BPM P-R Int : 126 ms QRS Dur : 088 ms QT Int : 392 ms P-R-T Axes : 062 029 048 degrees QTc Int : 479 ms NORMAL SINUS RHYTHM NONSPECIFIC T WAVE ABNORMALITY PROLONGED QT ABNORMAL ECG WHEN COMPARED WITH ECG OF 30-OCT-2019 14:10, NO SIGNIFICANT CHANGE WAS FOUND Confirmed by BLAINE RATLIFF MD ([id number]) on 02/11/2020 2:03:50 PM Referred By: Confirmed By:BLAINE RATLIFF MD
[2020-02-11 15:01] LABS: EPI CELLS 11 /uL (0-25.1); HYALINE CASTS 1 /uL (0-3.1); URINE APPEARANCE CLOUDY; URINE BILIRUBIN NEGATIVE (NEGATIVE); URINE COLOR YELLOW; URINE GLUCOSE (UA) NEGATIVE (NEGATIVE); URINE KETONE TRACE (NEGATIVE); URINE LEUK ESTERASE NEGATIVE (NEGATIVE); URINE NITRITE POSITIVE (NEGATIVE); URINE PROTEIN TRACE (NEGATIVE); URINE RBC 10 /uL (0-23.9); URINE WBC 24 /uL (0-25.8)
[2020-02-11 17:06] VITALS: BMI 46.0
--- NOTE | 2020-02-11 17:43 | PN ---
Progress Note (short form) - Note Progress Note: SUBJECTIVE: No further blood loss, diaphoresis. No lightheadedness/CP/ palpitations. OBJECTIVE: Afebrile, Hemodynamically stable. Last Vital Signs Temp Pulse Resp BP Pulse Ox 98.2 F 95 H 20 113/66 95 02/11/20 16:57 02/11/20 16:57 02/11/20 16:57 02/11/20 16:57 02/11/20 17:06 HEENT - Atramatic, Normocephalic. Heart - S1, S2, RRR Lungs - clear to auscultation Abdomen - High BMI. Soft, non-tender. Bowel Sounds normal. Extremities - lymphedema, venous stasis. R thigh lesion dressed - dressings clean and dry. Laboratory Results - last 24 hr 02/10/20 02/10/20 02/10/20 18:00 18:00 18:00 WBC 19.2 H RBC 2.79 L Hgb 7.6 L Hct 24.2 L D MCV 87.0 MCH 27.3 MCHC 31.3 L RDW 15.7 D Plt Count 513 H D MPV 6.7 L Absolute Neuts (auto) 9.2 H Neutrophils % 48.1 Neutrophils % (Manual) 49.0 D Band Neutrophils % 0.0 Lymphocytes % 5.5 L D Lymphocytes % (Manual) 11.8 D Monocytes % 5.1 Monocytes % (Manual) 5 Eosinophils % 40.8 H* Eosinophils % (Manual) 33.3 H Basophils % 0.5 Basophils % (Manual) 1.0 D Myelocytes % (Man) 0 Promyelocytes % (Man) 0 Blast Cells % (Manual) 0 Nucleated RBC % 0 Metamyelocytes 0 Hypochromia Platelet Estimate Polychromasia Poikilocytosis Anisocytosis Microcytosis Macrocytosis PT with INR 14.30 H INR 1.21 H PTT (Actin FS) 26.1 Sodium 139 Potassium 4.0 Chloride 105 Carbon Dioxide 25 Anion Gap 8 BUN 14.9 Creatinine 1.1 Est GFR (CKD-EPI)AfAm 93.47 Est GFR (CKD-EPI)NonAf 80.64 Random Glucose 179 H Calcium 8.1 L Total Bilirubin 0.2 AST 15 ALT 14 Alkaline Phosphatase 86 Troponin I < 0.02 Total Protein 5.5 L Albumin 1.6 L Urine Color Urine Appearance Urine pH Ur Specific [place] Urine Protein Urine Glucose (UA) Urine Ketones Urine Blood Urine Nitrite Urine Bilirubin Urine Urobilinogen Ur Leukocyte Esterase Urine WBC (Auto) Urine RBC (Auto) Urine Casts (Auto) U Epithel Cells (Auto) Urine Bacteria (Auto) Blood Type Antibody Screen Crossmatch 02/10/20 02/10/20 02/11/20 18:00 20:20 06:20 WBC 18.9 H RBC 2.74 L Hgb 7.6 L Hct 23.7 L MCV 86.7 MCH 27.6 MCHC 31.9 L RDW 15.3 Plt Count 413 MPV 6.7 L Absolute Neuts (auto) 8.4 H Neutrophils % 44.8 Neutrophils % (Manual) 46.0 Band Neutrophils % 0.0 Lymphocytes % 5.0 L Lymphocytes % (Manual) 10.0 Monocytes % 5.8 Monocytes % (Manual) 4 Eosinophils % 43.4 H* Eosinophils % (Manual) 40.0 H Basophils % 1.0 Basophils % (Manual) 0.0 Myelocytes % (Man) 0 Promyelocytes % (Man) 0 Blast Cells % (Manual) 0 Nucleated RBC % 0 Metamyelocytes 0 Hypochromia 0 Platelet Estimate Normal Polychromasia 1+ Poikilocytosis 0 Anisocytosis 1+ Microcytosis 1+ Macrocytosis 0 PT with INR INR PTT (Actin FS) Sodium Potassium Chloride Carbon Dioxide Anion Gap BUN Creatinine Est GFR (CKD-EPI)AfAm Est GFR (CKD-EPI)NonAf Random Glucose Calcium Total Bilirubin AST ALT Alkaline Phosphatase Troponin I Total Protein Albumin Urine Color Urine Appearance Urine pH Ur Specific [place] Urine Protein Urine Glucose (UA) Urine Ketones Urine Blood Urine Nitrite Urine Bilirubin Urine Urobilinogen Ur Leukocyte Esterase Urine WBC (Auto) Urine RBC (Auto) Urine Casts (Auto) U Epithel Cells (Auto) Urine Bacteria (Auto) Blood Type B NEGATIVE B NEGATIVE Antibody Screen Negative Negative Crossmatch See Detail 02/11/20 02/11/20 06:20 13:40 WBC RBC Hgb Hct MCV MCH MCHC RDW Plt Count MPV Absolute Neuts (auto) Neutrophils % Neutrophils % (Manual) Band Neutrophils % Lymphocytes % Lymphocytes % (Manual) Monocytes % Monocytes % (Manual) Eosinophils % Eosinophils % (Manual) Basophils % Basophils % (Manual) Myelocytes % (Man) Promyelocytes % (Man) Blast Cells % (Manual) Nucleated RBC % Metamyelocytes Hypochromia Platelet Estimate Polychromasia Poikilocytosis Anisocytosis Microcytosis Macrocytosis PT with INR INR PTT (Actin FS) Sodium 139 Potassium 4.6 Chloride 104 Carbon Dioxide 25 Anion Gap 10 BUN 14.8 Creatinine 0.8 Est GFR (CKD-EPI)AfAm 125.04 Est GFR (CKD-EPI)NonAf 107.88 Random Glucose 82 Calcium 8.8 Total Bilirubin AST ALT Alkaline Phosphatase Troponin I Total Protein Albumin Urine Color Yellow Urine Appearance Cloudy Urine pH 5.0 Ur Specific [place] 1.030 Urine Protein Trace Urine Glucose (UA) Negative Urine Ketones Trace H Urine Blood Negative Urine Nitrite Positive H Urine Bilirubin Negative Urine Urobilinogen 1.0 Ur Leukocyte Esterase Negative Urine WBC (Auto) 24 Urine RBC (Auto) 10 Urine Casts (Auto) 1 U Epithel Cells (Auto) 11 Urine Bacteria (Auto) >10,000 Blood Type Antibody Screen Crossmatch Current Medications Generic Name Dose Route Start Last Admin Trade Name Freq PRN Reason Stop Dose Admin Acetaminophen 1,000 mg 02/10/20 23:36 02/11/20 12:57 Ofirmev Injection - IVPB 02/11/20 23:22 1,000 mg Q6H PRN Administration PAIN LEVEL 1-5 Ferrous Sulfate 325 mg 02/12/20 10:00 Feosol - PO DAILY JENNIFER Metoprolol Succinate 200 mg 02/12/20 10:00 Toprol Xl - PO DAILY JENNIFER Non-Formulary Medication 400 mg 02/11/20 22:00 Amiodarone Hcl [Amiodarone Hcl] PO BID JENNIFER Spironolactone 25 mg 02/12/20 10:00 Aldactone - PO DAILY JENNIFER Tramadol HCl 50 mg 02/10/20 21:24 02/11/20 17:27 Ultram - PO 50 mg Q8H PRN Administration PAIN LEVEL 7 - 10 Home Medications Medication Instructions Recorded Acetaminophen 650 mg PO Q6H PRN 10/14/19 Aspirin 81 mg PO DAILY 10/14/19 Ferrous Sulfate 325 mg PO DAILY 10/14/19 Metoprolol Succinate [Toprol XL -] 200 mg PO DAILY #30 tab.sr.24h 10/30/19 Spironolactone 25 mg PO DAILY #30 tablet 10/30/19 Amiodarone HCl 400 mg PO BID 02/10/20 ASSESSMENT/PLAN: 44 year old male with PMH of Obesity, DM 2, HFrEF (LVEF 40% - ECHO 10/24/2019), 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 1. Acute Blood Loss Anemia secondary to hemorrhage from R thigh ulcer (SCC) H.H 7.6/24.2 (Baseline 10.3/31.5 on 10/29) Ulcer now compressed and dressed. No further blood loss. Receiving 2 units PRBCs. Hemodynamically Stable. Will order CT RLE Surgery eval requested. Appears to have history of RONNIE as he is chronically on Ferrous Sulfate. 2. SCC RLE - recurrent. Has had 3 prior surgeries fro SCC on other areas on leg. Rx for this lesion delayed due to COVID Pandemic. Oncology consulted. 3. HTN - BP meds Metoprolol and Spironolactone to resume in AM if BP allows. 4. Hx Atrial Flutter - on Amiodarone. Not on AC 5. Hx of DVT - recently stopped Coumadin 1 month prior. DVT Px - SCDs Visit type - Emergency Visit Emergency Visit: Yes ED Registration Date: 02/10/20 Care time: The patient presented to the Emergency Department on the above date and was hospitalized for further evaluation of their emergent condition. - New Patient This patient is new to me today: Yes Date on this admission: 02/11/20 - Critical Care Critical Care patient: No - Discharge Referral Referred to [facility] Med P.C.: No
[2020-02-11] MEDS: AMIODARONE HCL 200 MG TABLET PO SCH (21:53)
[2020-02-11] MEDS ORDERED: traMADol HCL 50 MG TABLET PO ONE (22:43)
--- NOTE | 2020-02-11 22:43 | RAPID ---
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 On arrival informed by nursing staff patient had just returned from T of R lower extremity as patient adjust himself he started profusely bleeding from the site of his RLE mass. on arrival BP 80s/50s. Vital Signs Temperature 98.2 F 02/11/20 16:57 Pulse Rate 95 H 02/11/20 16:57 Respiratory Rate 20 02/11/20 16:57 Blood Pressure 113/66 02/11/20 16:57 O2 Sat by Pulse Oximetry (%) 95 02/11/20 17:06 Physical Exam: General: Lying in bed appears to have lost 500cc of blood, patient endorsing mild lightheadedness Lungs: CTA B/L no wheezes or crackles appreciated CV: Normal S1 S2 no M/R/G Skin: RLE medial thigh multiple areas of ulceration and large mass, bleeding at lower portion of the mass. Plan: # 1L of NS bolus Bp improved to 130s/80s # Stat CBC ordered will transfuse 1 unit of pRBC if Hct less than 26 # Patient endorsing improvement of lightheadedness # Applied continuous pressure and elevation to the site until no active bleeding was witnessed # Patient not on anticoagulation Labs: CBC, BMP 02/11/20 06:20 02/11/20 06:20
[2020-02-12 00:38] LABS: BASO % 0.4 % (0-2.0); EOS % 40.2 % (0-4.5); LYMPH % 4.1 % (8-40); MCH 28.5 pg (25.7-33.7); MCHC 32.8 g/dl (32.0-35.9); MEAN CELL VOLUME 86.9 fl (80-96); MEAN PLT VOLUME 6.7 fl (7.5-11.1); MONO % 5.7 % (3.8-10.2); NEUT % 49.6 % (42.8-82.8); PLATELET COUNT 395 K/MM3 (134-434); RBC 2.24 M/mm3 (4.00-5.60); RDW 15.3 % (11.9-15.9); WHITE BLOOD COUNT 22.2 K/mm3 (4.0-10.0)
[2020-02-12 00:49] LABS: HEMOGLOBIN 6.4 GM/dL (11.7-16.9)
[2020-02-12 00:50] LABS: HEMATOCRIT 19.5 % (35.4-49)
[2020-02-12] MEDS: ACETAMINOPHEN 1000 MG/100 ML VIAL (NON FORMULARY) IVPB PRN (00:55)
[2020-02-12] MEDS: traMADol HCL 50 MG TABLET PO PRN ×2 (06:44→14:23)
[2020-02-12 09:25] LABS: BASO % 0.7 % (0-2.0); HEMATOCRIT 20.7 % (35.4-49); LYMPH % 6.5 % (8-40); MCH 28.2 pg (25.7-33.7); MCHC 32.7 g/dl (32.0-35.9); MEAN CELL VOLUME 86.4 fl (80-96); MEAN PLT VOLUME 6.7 fl (7.5-11.1); MONO % 6.3 % (3.8-10.2); NEUT % 47.5 % (42.8-82.8); PLATELET COUNT 365 K/MM3 (134-434); RDW 14.9 % (11.9-15.9); WHITE BLOOD COUNT 20.4 K/mm3 (4.0-10.0)
[2020-02-12 09:35] LABS: HEMOGLOBIN 6.8 GM/dL (11.7-16.9)
[2020-02-12] MEDS ORDERED: SPIRONOLACTONE 25 MG TABLET PO SCH (10:00)
[2020-02-12] MEDS ORDERED: FERROUS SO4 325 MG TABLET (FP) PO SCH (10:00)
[2020-02-12 10:03] LABS: POTASSIUM 4.5 mmol/L (3.5-5.1)
[2020-02-12] MEDS ORDERED: PT OWN MED DRAWER 7, Y5N ONE (10:03)
[2020-02-12] MEDS: AMIODARONE HCL 200 MG TABLET PO SCH ×2 (10:07→21:59)
[2020-02-12 10:18] LABS: BLOOD UREA NITROGEN 11.2 mg/dL (7-18); CALCIUM 8.6 mg/dL (8.5-10.1); CREATININE 0.7 mg/dL (0.55-1.3)
[2020-02-12 10:51] LABS: ANISOCYTOSIS 2+; MACROCYTOSIS 1+; PLATELET ESTIMATE NORMAL
[2020-02-12] MEDS ORDERED: ACETAMINOPHEN 325 MG TABLET (FP) PO PRN ×2 (13:24→13:49)
[2020-02-12] MEDS ORDERED: IBUPROFEN 600 MG TABLET (FP) PO PRN (15:36)
--- NOTE | 2020-02-12 15:56 | PN ---
Teaching Attending Note Name of Resident: Matthew Su ATTENDING PHYSICIAN STATEMENT I saw and evaluated the patient. I reviewed the resident's note and discussed the case with the resident. I agree with the resident's findings and plan as documented. SUBJECTIVE: Episode of acute bleed and diaphoresis overnight, now resolved. No lightheadedness/CP/palpitations. OBJECTIVE: Afebrile, BP borderline. Last Vital Signs Temp Pulse Resp BP Pulse Ox 99.0 F 82 2 L 96/53 L 95 02/12/20 14:00 02/12/20 14:00 02/12/20 14:02/12/20 14:00 02/11/20 17:06 HEENT - Atraumatic, Normocephalic. Heart - S1, S2, RRR Lungs - clear to auscultation Abdomen - High BMI. Soft, non-tender. Bowel Sounds normal. Extremities - lymphedema +, venous stasis. R thigh lesion dressed - dressings clean and dry. Laboratory Results - last 24 hr 02/10/20 02/12/20 02/12/20 20:20 00:15 08:10 WBC 22.2 H 20.4 H RBC 2.24 L 2.40 L Hgb 6.4 L* 6.8 L* Hct 19.5 L D 20.7 L MCV 86.9 86.4 MCH 28.5 28.2 MCHC 32.8 32.7 RDW 15.3 14.9 Plt Count 395 365 MPV 6.7 L 6.7 L Absolute Neuts (auto) 11.0 H 9.7 H Total Counted 100 Neutrophils % 49.6 47.5 Neutrophils % (Manual) 50.0 56.9 Band Neutrophils % 1.0 0.0 Lymphocytes % 4.1 L 6.5 L D Lymphocytes % (Manual) 5.0 L D 7.8 L D Monocytes % 5.7 6.3 Monocytes % (Manual) 4 Eosinophils % 40.2 H* 39.0 H* Eosinophils % (Manual) 38.0 H 30.4 H Basophils % 0.4 0.7 Basophils % (Manual) 1.0 D Myelocytes % (Man) 0 Promyelocytes % (Man) 0 Blast Cells % (Manual) 0 Nucleated RBC % 0 0 Metamyelocytes 0 Hypochromia 2+ Platelet Estimate Normal Polychromasia 1+ Poikilocytosis 0 Anisocytosis 2+ Microcytosis 1+ Macrocytosis 1+ Schistocytes 0 Sodium Potassium Chloride Carbon Dioxide Anion Gap BUN Creatinine Est GFR (CKD-EPI)AfAm Est GFR (CKD-EPI)NonAf POC Glucometer Random Glucose Calcium Blood Type B NEGATIVE Antibody Screen Negative Crossmatch See Detail 02/12/20 02/12/20 08:10 12:52 WBC RBC Hgb Hct MCV MCH MCHC RDW Plt Count MPV Absolute Neuts (auto) Total Counted Neutrophils % Neutrophils % (Manual) Band Neutrophils % Lymphocytes % Lymphocytes % (Manual) Monocytes % Monocytes % (Manual) Eosinophils % Eosinophils % (Manual) Basophils % Basophils % (Manual) Myelocytes % (Man) Promyelocytes % (Man) Blast Cells % (Manual) Nucleated RBC % Metamyelocytes Hypochromia Platelet Estimate Polychromasia Poikilocytosis Anisocytosis Microcytosis Macrocytosis Schistocytes Sodium 134 L Potassium 4.5 Chloride 101 Carbon Dioxide 25 Anion Gap 9 BUN 11.2 Creatinine 0.7 Est GFR (CKD-EPI)AfAm 132.09 Est GFR (CKD-EPI)NonAf 113.97 POC Glucometer 102 Random Glucose 76 Calcium 8.6 Blood Type Antibody Screen Crossmatch Current Medications Generic Name Dose Route Start Last Admin Trade Name Freq PRN Reason Stop Dose Admin Acetaminophen 650 mg 02/12/20 13:49 Tylenol - PO Q6H PRN PAIN LEVEL 1-5 Amiodarone HCl 400 mg 02/11/20 22:00 02/12/20 10:07 Cordarone - PO 400 mg BID JENNIFER Administration Ferrous Sulfate 325 mg 02/12/20 10:00 02/12/20 10:07 Feosol - PO 325 mg DAILY JENNIFER Administration Ibuprofen 600 mg 02/12/20 15:36 Motrin - PO Q6H PRN FEVER Metoprolol Succinate 200 mg 02/12/20 10:00 02/12/20 10:07 Toprol Xl - PO 200 mg DAILY JENNIFER Administration Spironolactone 25 mg 02/12/20 10:00 02/12/20 10:07 Aldactone - PO 25 mg DAILY JENNIFER Administration Tramadol HCl 50 mg 02/10/20 21:24 02/12/20 14:23 Ultram - PO 50 mg Q8H PRN Administration PAIN LEVEL 7 - 10 Home Medications Medication Instructions Recorded Acetaminophen 650 mg PO Q6H PRN 10/14/19 Aspirin 81 mg PO DAILY 10/14/19 Ferrous Sulfate 325 mg PO DAILY 10/14/19 Metoprolol Succinate [Toprol XL -] 200 mg PO DAILY #30 tab.sr.24h 10/30/19 Spironolactone 25 mg PO DAILY #30 tablet 10/30/19 Amiodarone HCl 400 mg PO TID 02/10/20 Bumetanide 1 mg PO DAILY 02/12/20 Lisinopril [Zestril] 2.5 mg PO DAILY 02/12/20 ASSESSMENT/PLAN: 44 year old male with PMH of Obesity, DM 2, HFrEF (LVEF 40% - ECHO 10/24/2019), 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 CT RLE - extensive subcutaneous edema with no evidence of fluid collection (no abscess or hematoma). Innumerable subcutaneous nodules consistent with metastatic disease. 1. Acute Blood Loss Anemia secondary to intractable/recurrent hemorrhage from R thigh ulcer (SCC) H.H 6.8/20.7 (Baseline 10.3/31.5 on 10/29) s/p 3 units PRBCs. Ulcer now compressed and dressed. No further blood loss. To receive another 2 units PRBCs. Repeat H/H midnight if patient is still here. Aspirin held. BP borderline after receiving BP meds Spironolactone and Metoprolol this AM - now held. Surgery eval requested - discussed with surgical team who recommends transfer to [facility] where he gets treatment for his SCC and planned IR procedure on Wednesday. Appears to have history of RONNIE as he is chronically on Ferrous Sulfate - will continue. 2. SCC RLE - recurrent. Has had 3 prior surgeries for SCC on other areas on leg. Rx for this particular lesion delayed due to COVID Pandemic. CT shows multiple subcutaneous nodules consistent with metastatic disease. Discussed with Dr. Fowler who recommends involvement of Radiation Oncology. Case discussed with [facility] given that patient's oncologist is there - awaiting bed for transfer. 3. HTN - BP meds Metoprolol, Spironolactone, Lisinopril held due to borderline BP. 4. Hx Atrial Flutter - on Amiodarone. Not on AC 5. Hx of DVT - recently stopped Coumadin 1 month prior. INR 1.2 DVT Px - SCDs Dispo - plan for transfer to [facility] based on Surgery and Oncology recommendations.
--- NOTE | 2020-02-12 16:12 | CONSULT ---
Consultation: REQUESTING PROVIDER: Dr. Harris CONSULT REQUEST: We have been asked to medically evaluate this patient for RLE ulcer. HISTORY OF PRESENT ILLNESS: Pt. is a 44 y.o. M w/ PMHx. of HTN, RONNIE, A.Flutter (Not on AC 2/2 recurrent leg ulcer bleeds-d/c-ed 1 months ago) and SCC( s/p incomplete excision in 2013 complicated by hematoma evacuation which complicated by infective endocarditis requiring Mitral, Aortic and Tricuspid valve repair in August 2019) presents from home after having a large bleed in his RLE. Hospital course was complicated by another large bleed with movement. Pt. has received 5 units total pRBCs this admission. Pt. states that at home just prior to the bleed he noticed that his RLE was getting more and more tense. When he sat on the toilet he estimated about 500cc blood loss. Pt. follows with Dr. Jean Paul Handley at [facility] and was in talks about having Radiation therapy however he was not a good candidate at that time because of his recent open cardiac surgery. Pt. denies ever receiving radiation therapy. in the room endorses the same. Delays were further complicated by the COVID pandemic. Pt. endorses lightheadedness only with the bleeding. Pt. states that he has only had surgery for his SCC and it resulted in his unilateral lymhedema. Pt. denies any family history of cancers or any increased sun exposure to that area. Pt. states that he underwent genetic testing last week and has not received the results yet. Per chart review Pt. had this lesion for years before seeking treatment. REVIEW OF SYSTEMS: As above PHYSICAL EXAMINATION Vital Signs - 24 hr 02/11/20 02/11/20 02/11/20 16:57 17:06 19:00 Temperature 98.2 F 98.5 F Pulse Rate 95 H 71 Respiratory 20 20 Rate Blood Pressure 113/66 104/63 O2 Sat by Pulse 95 Oximetry (%) 02/11/20 02/12/20 02/12/20 23:00 06:00 08:15 Temperature 98.3 F 98.4 F 99 F Pulse Rate 68 80 84 Respiratory 20 20 20 Rate Blood Pressure 108/58 L 105/58 L 106/57 L O2 Sat by Pulse Oximetry (%) 02/12/20 14:00 Temperature 99.0 F Pulse Rate 82 Respiratory 2 L Rate Blood Pressure 96/53 L O2 Sat by Pulse Oximetry (%) GENERAL: Awake, alert, and fully oriented, in no acute distress. HEAD: Normal with no signs of trauma. EYES: Extraocular movements intact, sclera anicteric, conjunctiva clear. EARS, NOSE, THROAT: Ears normal, nares patent, oropharynx clear without exudates. Moist mucous membranes. NECK: Normal range of motion LUNGS: Breath sounds equal, clear to auscultation bilaterally anteriorly. No wheezes, and no crackles. No accessory muscle use. HEART: Regular rate and rhythm, normal S1 and S2 with systolic murmur ABDOMEN: Soft, nontender, not distended, normoactive bowel sounds, no guarding, no rebound, no masses. UPPER EXTREMITIES: 2+ radial pulses, warm, well-perfused. No cyanosis. No clubbing. Cap refill <2 seconds. No peripheral edema. LOWER EXTREMITIES: Faint R. dorsal pedal slightly stronger R. posterior tibial pulses, RLE is ~2.5 x larger than LLE. LLE 2+ dorsal pedal pulses NEUROLOGICAL: Denies any focal deficits, exam limted as Pt. resistant to moving because of propensity to bleed PSYCHIATRIC: Cooperative. Good eye contact. Appropriate mood and affect. SKIN: R. Thigh wound bandaged. Picture from a few days ago showed marked, scattered ulcerations. Tissue appeared friable. Laboratory Results - last 24 hr 02/10/20 02/10/20 02/12/20 20:20 20:20 00:15 WBC 22.2 H RBC 2.24 L Hgb 6.4 L* Hct 19.5 L D MCV 86.9 MCH 28.5 MCHC 32.8 RDW 15.3 Plt Count 395 MPV 6.7 L Absolute Neuts (auto) 11.0 H Total Counted 100 Neutrophils % 49.6 Neutrophils % (Manual) 50.0 Band Neutrophils % 1.0 Lymphocytes % 4.1 L Lymphocytes % (Manual) 5.0 L D Monocytes % 5.7 Monocytes % (Manual) Eosinophils % 40.2 H* Eosinophils % (Manual) 38.0 H Basophils % 0.4 Basophils % (Manual) Myelocytes % (Man) Promyelocytes % (Man) Blast Cells % (Manual) Nucleated RBC % 0 Metamyelocytes Hypochromia Platelet Estimate Polychromasia Poikilocytosis Anisocytosis Microcytosis Macrocytosis Schistocytes Sodium Potassium Chloride Carbon Dioxide Anion Gap BUN Creatinine Est GFR (CKD-EPI)AfAm Est GFR (CKD-EPI)NonAf POC Glucometer Random Glucose Calcium COVID-19 (MAYRA) Not detected Blood Type B NEGATIVE Antibody Screen Negative Crossmatch See Detail 02/12/20 02/12/20 02/12/20 08:10 08:10 12:52 WBC 20.4 H RBC 2.40 L Hgb 6.8 L* Hct 20.7 L MCV 86.4 MCH 28.2 MCHC 32.7 RDW 14.9 Plt Count 365 MPV 6.7 L Absolute Neuts (auto) 9.7 H Total Counted Neutrophils % 47.5 Neutrophils % (Manual) 56.9 Band Neutrophils % 0.0 Lymphocytes % 6.5 L D Lymphocytes % (Manual) 7.8 L D Monocytes % 6.3 Monocytes % (Manual) 4 Eosinophils % 39.0 H* Eosinophils % (Manual) 30.4 H Basophils % 0.7 Basophils % (Manual) 1.0 D Myelocytes % (Man) 0 Promyelocytes % (Man) 0 Blast Cells % (Manual) 0 Nucleated RBC % 0 Metamyelocytes 0 Hypochromia 2+ Platelet Estimate Normal Polychromasia 1+ Poikilocytosis 0 Anisocytosis 2+ Microcytosis 1+ Macrocytosis 1+ Schistocytes 0 Sodium 134 L Potassium 4.5 Chloride 101 Carbon Dioxide 25 Anion Gap 9 BUN 11.2 Creatinine 0.7 Est GFR (CKD-EPI)AfAm 132.09 Est GFR (CKD-EPI)NonAf 113.97 POC Glucometer 102 Random Glucose 76 Calcium 8.6 COVID-19 (MAYRA) Blood Type Antibody Screen Crossmatch Active Medications Generic Name Dose Route Start Last Admin Trade Name Freq PRN Reason Stop Dose Admin Acetaminophen 650 mg 02/12/20 13:49 Tylenol - PO Q6H PRN PAIN LEVEL 1-5 Amiodarone HCl 400 mg 02/11/20 22:00 02/12/20 10:07 Cordarone - PO 400 mg BID JENNIFER Administration Ferrous Sulfate 325 mg 02/12/20 10:00 02/12/20 10:07 Feosol - PO 325 mg DAILY JENNIFER Administration Ibuprofen 600 mg 02/12/20 15:36 Motrin - PO Q6H PRN FEVER Tramadol HCl 50 mg 02/10/20 21:24 07/06/20 14:23 Ultram - PO 50 mg Q8H PRN Administration PAIN LEVEL 7 - 10 ASSESSMENT/PLAN: Pt. is a 44 y.o. M w/ PMHx. of HTN, RONNIE, A.Flutter (Not on AC 2/2 recurrent leg ulcer bleeds-d/c-ed 1 months ago) and SCC( s/p incomplete excision in 2013 complicated by hematoma evacuation which complicated by infective endocarditis requiring Mitral, Aortic and Tricuspid valve repair in August 2019) presents from home after having a large bleed in his RLE. #Recurrent Squamous Cell Carcinoma f/u Radiology/Oncology consult for adjuvant vs. salvage treatment Pt. may need cardiology clearance before treatment Vascular consult appreciated as Pt. has significant lymphedema, HBO? Pt. can be a candidate for Cemiplimab if RT is not an option or if RT fails CT Chest shows slightly prominent LAD in mediastinum 2cm, lung shows irregular pleural thickening CT Abdomen/Pelvis: small LN in R. cardiophrenic angle, slightly increased R. external iliac and internal obturator lymph node chains (compared to 10/26 CT scan). Galls stones present w/o signs of cholecystitis. R. inguinal LN increased with extensive nodularity and skin thickening (compared to 10/26 CT Scan). No metastases were seen. R. Lower extremity CT Scan w/ contrast: extensive subcutaneous edema without abscess, nodules consistent with metastatic disease Duplex 01/03/20 negative for DVT f/u Records from [facility] Advised per Primary team that Transfer process to [facility] being initiated #A. Flutter #HTN c/w home medications #DVT SCDs Dispo: We will continue to follow the patient. Thank you for this consultative opportunity. Visit type - Emergency Visit Emergency Visit: Yes ED Registration Date: 02/10/20 Care time: The patient presented to the Emergency Department on the above date and was hospitalized for further evaluation of their emergent condition. - New Patient This patient is new to me today: Yes Date on this admission: 02/12/20 - Critical Care Critical Care patient: No ATTENDING PHYSICIAN STATEMENT I saw and evaluated the patient. I reviewed the resident's note and discussed the case with the resident. I agree with the resident's findings and plan as documented. SUBJECTIVE: OBJECTIVE: ASSESSMENT AND PLAN:
--- NOTE | 2020-02-12 16:16 | CONSULT ---
- Consultation REQUESTING PROVIDER: CONSULT REQUEST: We have been asked to surgically evaluate this patient for Right leg bleeding . PCP:Cruz Harris MD HISTORY OF PRESENT ILLNESS: The patient is a 44 yo male with a history of RLE SCC. He has had resection and radiation with platics closure for a wound in April. He states that since the beginning of the year the wound has grown in size. He hasn't had follow with the plastic surgeons since after his cardiac s urgery since he was hospitalized and then went to rehab. He doesn have a f/u appt with his oncologist this week Wednesday and Plastic surgery on Wednesday. His leg overall has enlarged over the past several weeks. The patient had acute bleeding from his wound and came to the ER for evaluation. At the time his was present and assisted him. He also had an episode of bleeding last night after returning from cat scan that stopped when pressure was held. Currently he is receiving PRBC. Denies dizziness/CP does have a persistent cough since his heart surgery. 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 Jean Paul Handley at [facility] , DVT, anemia PSHx: cardiac valve replacement in July. Plastic closure of right thogh wound in April [address] [facility] Home Medications Medication Instructions Recorded Aspirin 81 mg PO DAILY 10/14/19 Metoprolol Succinate [Toprol XL -] 200 mg PO DAILY #30 tab.sr.24h 10/30/19 Spironolactone 25 mg PO DAILY #30 tablet 10/30/19 Amiodarone HCl 400 mg PO TID 02/10/20 Bumetanide 1 mg PO DAILY 02/12/20 Lisinopril [Zestril] 2.5 mg PO DAILY 02/12/20 Allergies Allergy/AdvReac Type Severity Reaction Status Date / Time furosemide [From Lasix] AdvReac Severe Verified 02/10/20 17:56 REVIEW OF SYSTEMS: CARDIOVASCULAR: Absent: chest pain RESPIRATORY: Present: cough since his heart surgery Absent: abdominal pain, abdominal distension melena, hematochezia PHYSICAL EXAM: GENERAL: Awake, alert, and fully oriented, in no acute distress. LOWER EXTREMITIES: RLE thigh >left thigh in appearance. Groin with scar tissue to upper thigh. There are variable superficial wounds without any evidence of bleeding. Combined Locks granulation at base with fibrinous material. Some with eschar. The wound size is 20cm long with 4cm length at its greatest, edges are irregular. Smaller wounds 2 x 1cm and [facility] Medial aspect with 4 x 10cm superficial wound. No evidence of bleeding noted, gauze and ABD dressing removed with copious irrigation to avoid bleeding. Applied wet to dry dressing today and abd pad. NEUROLOGICAL: Normal speech, gait not observed. PSYCH: Cooperative. Good eye contact. Appropriate mood and affect. SKIN: Warm, dry, normal turgor, no rashes or lesions noted. Vital Signs Temperature 99.0 F 02/12/20 14:00 Pulse Rate 82 02/12/20 14:00 Respiratory Rate 2 L 02/12/20 14:00 Blood Pressure 96/53 L 02/12/20 14:00 O2 Sat by Pulse Oximetry (%) 95 02/11/20 17:06 Lab Results WBC 20.4 K/mm3 (4.0-10.0) H 02/12/20 08:10 RBC 2.40 M/mm3 (4.00-5.60) L 02/12/20 08:10 Hgb 6.8 GM/dL (11.7-16.9) L* 02/12/20 08:10 Hct 20.7 % (35.4-49) L 02/12/20 08:10 MCV 86.4 fl (80-96) 02/12/20 08:10 MCHC 32.7 g/dl (32.0-35.9) 02/12/20 08:10 RDW 14.9 % (11.9-15.9) 02/12/20 08:10 Plt Count 365 K/MM3 (134-434) 02/12/20 08:10 INR 1.21 (0.83-1.09) H 02/10/20 18:00 Sodium 134 mmol/L (136-145) L 02/12/20 08:10 Potassium 4.5 mmol/L (3.5-5.1) 02/12/20 08:10 Chloride 101 mmol/L (98-107) 02/12/20 08:10 Carbon Dioxide 25 mmol/L (21-32) 02/12/20 08:10 Anion Gap 9 MMOL/L (8-16) 02/12/20 08:10 BUN 11.2 mg/dL (7-18) 02/12/20 08:10 Creatinine 0.7 mg/dL (0.55-1.3) 02/12/20 08:10 Random Glucose 76 mg/dL (74-106) 02/12/20 08:10 Calcium 8.6 mg/dL (8.5-10.1) 02/12/20 08:10 Blood Type B NEGATIVE 02/10/20 20:20 Antibody Screen Negative 02/10/20 20:20 CT scan of thigh with subcutaneous edema. No evidence of collection Problem List - Problems (1) Squamous cell carcinoma, leg Assessment/Plan: Pt with history of h/o complicated RLE SCC involving resection/radiation. Now with bleeding from his wound and transfusion of PRBC, 4 units PRBC. He denies any bleeding per rectum/hematemsis. Since last pm, his leg has remained dry. Recommend to continue dressing and apply pressure dressing for any further bleeding. Continue to transfuse and monitor H&H, consider FFP since the patient has now received 4 units PRBC. Holding aspirin and anticoagulation. Stool for FOB Spoke with the medical team and recommending transfer to [facility]/accepted for transfer. Pt with complicated surgical pathology/oncology needs and wound care. D/w Dr. Roque and agrees with the above assessment and treatment. Local wound care with xeroform/gauze and dry dressing Problems reviewed: Yes Code(s): C44.721 - SQUAMOUS CELL CARCINOMA SKIN/ UNSP LOWER LIMB, INCLUDING HIP Qualifiers: Laterality: right Qualified Code(s): C44.722 - Squamous cell carcinoma of skin of right lower limb, including hip
[2020-02-12 17:47] VITALS: TEMP 98.9
--- NOTE | 2020-02-12 17:56 | DS ---
Physical Exam: SUBJECTIVE: Patient seen and examined OBJECTIVE: Vital Signs Period Temp Pulse Resp BP Sys/Carrion Pulse Ox Last 24 Hr 98.3 F-99.0 F 68-84 2-20 87-108/51-63 PHYSICAL EXAM GENERAL: The patient is awake, alert, and fully oriented, in no acute distress. HEAD: Normal with no signs of trauma. EYES: PERRL, extraocular movements intact, sclera anicteric, conjunctiva clear. ENT: Ears normal, nares patent, oropharynx clear without exudates, moist mucous membranes. NECK: Trachea midline, full range of motion, supple. LUNGS: Breath sounds equal, clear to auscultation bilaterally, no wheezes, no crackles, no accessory muscle use. HEART: Regular rate and rhythm, S1, S2 without murmur, rub or gallop. ABDOMEN: Soft, nontender, nondistended, normoactive bowel sounds, no guarding, no rebound, no hepatosplenomegaly, no masses. EXTREMITIES: 2+ pulses, warm, well-perfused, no edema. NEUROLOGICAL: Cranial nerves II through XII grossly intact. Normal speech, gait not observed. PSYCH: Normal mood, normal affect. SKIN: Warm, dry, normal turgor, no rashes or lesions noted. LABS Laboratory Results - last 24 hr 02/10/20 02/10/20 02/12/20 20:20 20:20 00:15 WBC 22.2 H RBC 2.24 L Hgb 6.4 L* Hct 19.5 L D MCV 86.9 MCH 28.5 MCHC 32.8 RDW 15.3 Plt Count 395 MPV 6.7 L Absolute Neuts (auto) 11.0 H Total Counted 100 Neutrophils % 49.6 Neutrophils % (Manual) 50.0 Band Neutrophils % 1.0 Lymphocytes % 4.1 L Lymphocytes % (Manual) 5.0 L D Monocytes % 5.7 Monocytes % (Manual) Eosinophils % 40.2 H* Eosinophils % (Manual) 38.0 H Basophils % 0.4 Basophils % (Manual) Myelocytes % (Man) Promyelocytes % (Man) Blast Cells % (Manual) Nucleated RBC % 0 Metamyelocytes Hypochromia Platelet Estimate Polychromasia Poikilocytosis Anisocytosis Microcytosis Macrocytosis Schistocytes Sodium Potassium Chloride Carbon Dioxide Anion Gap BUN Creatinine Est GFR (CKD-EPI)AfAm Est GFR (CKD-EPI)NonAf POC Glucometer Random Glucose Calcium COVID-19 (MAYRA) Not detected Blood Type B NEGATIVE Antibody Screen Negative Crossmatch See Detail 02/12/20 02/12/20 02/12/20 08:10 08:10 12:52 WBC 20.4 H RBC 2.40 L Hgb 6.8 L* Hct 20.7 L MCV 86.4 MCH 28.2 MCHC 32.7 RDW 14.9 Plt Count 365 MPV 6.7 L Absolute Neuts (auto) 9.7 H Total Counted Neutrophils % 47.5 Neutrophils % (Manual) 56.9 Band Neutrophils % 0.0 Lymphocytes % 6.5 L D Lymphocytes % (Manual) 7.8 L D Monocytes % 6.3 Monocytes % (Manual) 4 Eosinophils % 39.0 H* Eosinophils % (Manual) 30.4 H Basophils % 0.7 Basophils % (Manual) 1.0 D Myelocytes % (Man) 0 Promyelocytes % (Man) 0 Blast Cells % (Manual) 0 Nucleated RBC % 0 Metamyelocytes 0 Hypochromia 2+ Platelet Estimate Normal Polychromasia 1+ Poikilocytosis 0 Anisocytosis 2+ Microcytosis 1+ Macrocytosis 1+ Schistocytes 0 Sodium 134 L Potassium 4.5 Chloride 101 Carbon Dioxide 25 Anion Gap 9 BUN 11.2 Creatinine 0.7 Est GFR (CKD-EPI)AfAm 132.09 Est GFR (CKD-EPI)NonAf 113.97 POC Glucometer 102 Random Glucose 76 Calcium 8.6 COVID-19 (MAYRA) Blood Type Antibody Screen Crossmatch 02/12/20 17:37 WBC RBC Hgb Hct MCV MCH MCHC RDW Plt Count MPV Absolute Neuts (auto) Total Counted Neutrophils % Neutrophils % (Manual) Band Neutrophils % Lymphocytes % Lymphocytes % (Manual) Monocytes % Monocytes % (Manual) Eosinophils % Eosinophils % (Manual) Basophils % Basophils % (Manual) Myelocytes % (Man) Promyelocytes % (Man) Blast Cells % (Manual) Nucleated RBC % Metamyelocytes Hypochromia Platelet Estimate Polychromasia Poikilocytosis Anisocytosis Microcytosis Macrocytosis Schistocytes Sodium Potassium Chloride Carbon Dioxide Anion Gap BUN Creatinine Est GFR (CKD-EPI)AfAm Est GFR (CKD-EPI)NonAf POC Glucometer 103 Random Glucose Calcium COVID-19 (MAYRA) Blood Type Antibody Screen Crossmatch HOSPITAL COURSE: Date of Admission:02/10/20 Date of Discharge: 02/12/20 Minutes to complete discharge: 40 Discharge Summary Problems reviewed: Yes Reason For Visit: ULCER BLEEDING Current Active Problems Blood loss anemia (Acute) Squamous cell carcinoma, leg (Chronic) Condition: Stable - Instructions Diet, Activity, Other Instructions: Your visit You presented to [facility] emergency department by EMS for copious bleeding through your thigh wound. WHile you were here you were diagnosed with blood loss anemia due to squamous cell carcinoma of the right thigh. You received a cat scan that showed malignant cells and for this we are transferrings you to a higher level of care center; [facility]. At [facility] you will be able to have cardiac clearance for your radiation therapy. ADDITIONAL INFORMATION Please call 911 or come directly to the emergency department if you experience unusual headache, vision change, shortness of breath, chest pain, numbness, tingling, loss of alertness/awareness, loss of function, unusual bleeding or any alarming symptoms. Thank you for allowing me to care for you. Referrals: Jean Paul Handley [Staff Physician] - 1 Week ZamudioRosanna Lechuga DO [Primary Care Provider] - 2 Weeks Disposition: TRANSFER ACUTE CARE/OTHER HOSP - Home Medications Comprehensive Discharge Medication List: Ambulatory Orders Aspirin 81 mg PO DAILY 10/14/19 Metoprolol Succinate [Toprol XL -] 200 mg PO DAILY #30 tab.sr.24h 10/30/19 Spironolactone 25 mg PO DAILY #30 tablet 10/30/19 Amiodarone HCl 400 mg PO TID 02/10/20 Lisinopril [Zestril] 2.5 mg PO DAILY 02/12/20 Tramadol HCl [Ultram] 50 mg PO Q6H 02/12/20 - Discharge Referral Referred to [facility] No ATTENDING PHYSICIAN STATEMENT I saw and evaluated the patient. I reviewed the resident's note and discussed the case with the resident. I agree with the resident's findings and plan as documented. SUBJECTIVE: OBJECTIVE: ASSESSMENT AND PLAN:
[2020-02-12 20:20] VITALS: PULSE 88
[2020-02-12] MEDS ORDERED: ACETAMINOPHEN 1000 MG/100 ML VIAL (NON FORMULARY) IVPB ONE (20:21)
[2020-02-12 23:55] VITALS: BP 100/62
== END 2020-02-13 01:45 | disposition short-term general hospital (02) | DRG 343 ==
LOC: JER 17:37 → JERBED 19:04 → J8W 02-11 16:01
PROVIDERS: ADMIT Internal Medicine
PROC: 30233N1 Transfusion of Nonautologous Red Blood Cells into Peripheral Vein, Percutaneous Approach (ICD-10-PCS; principal; 2020-02-10)
DX: C76.51 Malignant neoplasm of right lower limb (principal); I11.0 Hypertensive heart disease with heart failure; I50.22 Chronic systolic (congestive) heart failure; I48.92 Unspecified atrial flutter; E88.09 Other disorders of plasma-protein metabolism, not elsewhere classified; E66.01 Morbid (severe) obesity due to excess calories; Z68.42 Body mass index [BMI] 45.0-49.9, adult; D62 Acute posthemorrhagic anemia; Z79.01 Long term (current) use of anticoagulants; Z86.718 Personal history of other venous thrombosis and embolism; E11.9 Type 2 diabetes mellitus without complications; Z95.2 Presence of prosthetic heart valve; D72.829 Elevated white blood cell count, unspecified
CPT/HCPCS: 36415; 36430; 36511; 71045-TC-FY; 73701-TC-RT; 80048; 80053; 81003; 82962; 84484; 85025; 85610; 85730; 86850; 86900; 86901; 86922; 93005; 93010; 99291; J0131; P9016; P9038; P9058; Q9967; U0003